=== PATIENT | female | born 1950 ===

== ENCOUNTER 2018-02-02 13:00 | Inpatient (IN) | payer OTHER ==
[2018-05-18] MEDS ORDERED: ceFAZolin 2 GM/DEXTROSE 100 ML IV ONE (06:00)
[2018-05-18] MEDS ORDERED: ROPIVACAINE 0.2% 80 MG, EPINEPHrine 0.2 MG, KETOROLAC TROMETHAMINE 30 MG in SYRINGE 0 ML IU ONE (06:00)
[2018-05-18] MEDS ORDERED: TRANEXAMIC ACID 3,000 MG in NS (SYRINGE) 50 ML IRR ONE (06:00)
--- NOTE | 2018-05-18 06:15 | PDHPUP ---
History & Physical Update H&P update statement: This history and physical update is based on an assessment of the patient which was completed after admission or registration (within 24 hours), but prior to the surgery/procedure. H&P update: H&P reviewed & patient examined, no change in patient's condition since H&P completed
[2018-05-18] MEDS ORDERED: DEXAMETHASONE 4 MG/ML VIAL IVP ONE (06:18)
[2018-05-18] MEDS ORDERED: FAMOTIDINE 20 MG TAB PO ONE (06:18)
[2018-05-18] MEDS ORDERED: ACETAMINOPHEN 325 MG TAB PO ONE (06:18)
[2018-05-18] MEDS ORDERED: LIDOCAINE 1% 2 ML INJ ID PRN (06:21)
[2018-05-18] MEDS ORDERED: LR 1,000 ML IV ONE (06:21)
[2018-05-18] MEDS ORDERED: TRANEXAMIC ACID 3,000 MG/50 ML BAG IRR ONE (06:41)
[2018-05-18] MEDS ORDERED: VANCOMYCIN 1 GM VIAL ONE (06:43)
--- NOTE | 2018-05-18 07:23 | PDANEPAE ---
ANE Past Medical History - Cardiovascular History Hx Hypertension: No Hx Arrhythmias: No Hx Chest Pain: No Hx Coronary Artery / Peripheral Vascular Disease: No Hx CHF / Valvular Disease: No Hx Palpitations: No - Pulmonary History Hx COPD: No Hx Asthma/Reactive Airway Disease: No Hx Recent Upper Respiratory Infection: No Hx Oxygen in Use at Home: No Hx Sleep Apnea: No Sleep Apnea Screening Result - Last Documented: Negative Pulmonary History Comment: CHILDHOOD ASTHMA - Neurologic History Hx Cerebrovascular Accident: No Hx Seizures: No Hx Dementia: No Neurologic History Comment: CONCUSSION IN PAST - Renal History Hx Renal Disorders: No - Liver History Hx Hepatic Disorders: No - Neurological & Psychiatric Hx Hx Neurological and Psychiatric Disorders: No - Cancer History Hx Cancer: No - Congenital Disorder History Hx Congenital Disorders: No - GI History Hx Gastrointestinal Disorders: No - Other Health History Other Health History: PT HAD POST OPERATIVE DROP IN CALCIUM AT CRTICAL LEVELS FOLLOWING. PARATHYROID SURGERY RESULTING IN 2 WKS HOSPITALIZATION - Chronic Pain History Chronic Pain: Yes (R SHOULDER) - Surgical History Prior Surgeries: EYE SURGERY CORRECTIVE. CATARACTS. TONSILS & ADENOIDS. PARA THYROID. R SHOULDER/COLLARBONE. HYSTERECTOMY. KNEE R SCOPES X2. BAKERS CYST. BUNIONECTOMY R. DENTAL SURG X9 ANE Review of Systems Review of Systems: - Exercise capacity METS (RN): 5 METS ANE Patient History - Allergies Allergies/Adverse Reactions: codeine Allergy (Verified 01/10/18 11:03) Vomiting guaifenesin Allergy (Verified 05/18/18 06:32) Other-Enter Comments hydrocodone [From Vicodin] Allergy (Verified 05/18/18 06:32) Vomiting morphine Allergy (Verified 05/18/18 06:32) Vomiting Sulfa (Sulfonamide Antibiotics) Allergy (Verified 05/18/18 06:32) Vomiting - Home Medications Home Medications: Aspirin [Aspirin 81mg (*)] 81 mg PO DAILY 01/10/18 [Last Taken 04/27/18] Calcium Carbonate [Oyster Shell Calcium 500 mg (*)] 1,000 mg PO DAILY 01/10/18 [ Last Taken 04/27/18] Cholecalciferol Vit D3 [Vitamin D3 (*)] 1,000 units PO DAILY 01/10/18 [Last Taken 04/27/18] Cyanocobalamin [Vitamin B12 (*)] 1,000 mcg PO DAILY 01/10/18 [Last Taken ] Estradiol [Estradiol 1 MG (*)] 2 mg PO DAILY 01/10/18 [Last Taken 02/16/18] Herbals/Supplements -Info Only 1 ea PO DAILY 01/10/18 [Last Taken 04/27/18] Montelukast Sodium [Singulair 10 mg (*)] 10 mg PO DAILY PRN 01/10/18 [Last Taken 05/17/18 22:00] Thyroid [[place] Thyroid 60 MG (*)] 30 mg PO DAILY10 01/10/18 [Last Taken 05:00] Melatonin [Melatonin 3 MG (*)] 3 mg PO HS 03/17/18 [Last Taken 05/04/18] diphenhydrAMINE [Benadryl 25 MG (*)] 25 mg PO DAILY PRN 03/17/18 [Last Taken 22:00] - NPO status NPO Since - Liquids (Date): 05/18/18 NPO Since - Liquids (Time): 05:00 NPO Since - Solids (Date): 05/17/18 NPO Since - Solids (Time): 22:30 - Smoking Hx Smoking Status: Never smoked ANE Labs/Vital Signs - Vital Signs Blood Pressure: 140/82 Heart Rate: 63 Respiratory Rate: 13 O2 Sat (%): 95 Height: 167.64 cm Weight: 54.431 kg ANE Physical Exam - Airway Mallampati Score: Class 2 - ASA Status ASA Status: II ANE Anesthesia Plan Anesthesia Plan: spinal Regional Anesthesia: adductor canal FNB
[2018-05-18] MEDS ORDERED: MIDAZOLAM 2 MG/2 ML VIAL ONE (07:31)
[2018-05-18] MEDS ORDERED: PROPOFOL/EMULSION 500 MG/50 ML BOTTLE IV ONE (07:32)
[2018-05-18] MEDS ORDERED: fentaNYL 100 MCG/2 ML INJ ONE (07:32)
[2018-05-18] MEDS ORDERED: ONDANSETRON 4 MG/2 ML VIAL ONE (07:34)
[2018-05-18] MEDS ORDERED: ROPIVACAINE HCL 100 MG/20 ML INJ ONE (07:34)
[2018-05-18] MEDS ORDERED: BUPIVACAINE/DEXTROSE 7.5MG/ML 2 ML SPINAL AMP SP ONE (07:34)
[2018-05-18] MEDS ORDERED: POLYETHYLENE GLYCOL 3350 17 GM PKT PO PRN (09:36)
[2018-05-18] MEDS ORDERED: MAGNESIUM HYDROXIDE 30 ML UDCUP PO PRN (09:36)
[2018-05-18] MEDS ORDERED: PROMETHAZINE HCL 25 MG/ML INJ IVP PRN ×2 (09:36→09:48)
[2018-05-18] MEDS ORDERED: LACTULOSE 20 GM/30 ML UDCUP PO PRN (09:36)
[2018-05-18] MEDS ORDERED: METOCLOPRAMIDE 10 MG/2 ML VIAL IVP PRN ×2 (09:36→09:48)
[2018-05-18] MEDS ORDERED: ONDANSETRON 4 MG/2 ML VIAL IVP PRN ×2 (09:36→09:48)
[2018-05-18] MEDS ORDERED: PROMETHAZINE HCL 25 MG SUPPR PR PRN (09:36)
[2018-05-18] MEDS ORDERED: BISACODYL 10 MG SUPP PR PRN (09:36)
[2018-05-18] MEDS ORDERED: TEMAZEPAM 15 MG CAP PO PRN (09:36)
[2018-05-18] MEDS ORDERED: DIPHENOXYLATE/ATROPINE LOMOTIL 1 TAB PO PRN (09:36)
[2018-05-18] MEDS ORDERED: diphenhydrAMINE 25 MG CAP PO PRN (09:36)
--- NOTE | 2018-05-18 09:36 | POSTOPPROG ---
Post Op Note Date of Operation: 05/18/18 Surgeon: Ed Jackson Appliance Adjuster: María Holloway PA-C Anesthesiologist: Dr. Esteban Russell Anesthesia: Spinal (adductor canal block), Other (Specify) Pre-op Diagnosis: Right knee OA Post-op Diagnosis: same Indication: right knee pain Procedure: RTKA Findings: severe OA of right knee Inf/Abcess present in the surg proc area at time of surgery?: No EBL: 50-100
[2018-05-18] MEDS ORDERED: LR 500 ML IV PRN (09:48)
[2018-05-18] MEDS ORDERED: fentaNYL 100 MCG/2 ML INJ IVP PRN (09:48)
[2018-05-18] MEDS ORDERED: NALOXONE HCL 0.4 MG/ML INJ IVP PRN (09:48)
[2018-05-18] MEDS ORDERED: DEXAMETHASONE 4 MG/ML VIAL IVP PRN (09:48)
[2018-05-18] MEDS ORDERED: ACETAMINOPHEN 500 MG TAB PO PRN (09:48)
--- NOTE | 2018-05-18 09:50 | POSTANESTH ---
Post Anesthetic Evaluation Cardiovascular Status: Normal, Stable Respiratory Status: Normal, Stable Level of Consciousness/Mental Status: Can Participate in Eval Pain Control: Adequate, Prn Tx Ordered Nausea/Vomiting Control: Adequate, Prn Tx Ordered Complications Possibly Related to Anesthesia: None Noted
[2018-05-18] MEDS ORDERED: LR 1,000 ML IV SCH (10:00)
[2018-05-18] MEDS ORDERED: MEPERIDINE 25 MG/0.5 ML AMP ONE (10:33)
[2018-05-18] MEDS: TEARS/DEXTRAN 70/HYPROMELLOSE 15 ML OPHT.BTL EACHEYE PRN ×2 (10:37→18:36)
[2018-05-18] MEDS: ONDANSETRON DISINTEGRATING 4 MG TAB PO PRN ×2 (11:48→18:36)
[2018-05-18] MEDS: THYROID 60 MG TAB PO SCH (11:56)
[2018-05-18] MEDS: HYDROmorphONE/DILAUDID 2 MG TAB PO PRN ×2 (13:01→17:24)
--- NOTE | 2018-05-18 13:52 | PDMN ---
Medical Necessity Medical necessity: Pt meets IP criteria per PA; est los >2 mn s/p R TKA (cpt 16324); recommending IP due to concerns for pain control with hx of narcotic intolerance & out of state pt; per order 05/18/18
[2018-05-18] MEDS: ACETAMINOPHEN 325 MG TAB PO SCH ×2 (15:05→21:59)
[2018-05-18] MEDS: ceFAZolin 2 GM/DEXTROSE 100 ML IV SCH ×2 (15:06→23:35)
[2018-05-18] MEDS ORDERED: MONTELUKAST SODIUM 10 MG TAB PO PRN (18:00)
[2018-05-18] MEDS: ASPIRIN 81 MG CHEWABLE TAB PO SCH (20:42)
[2018-05-18] MEDS: SENNOSIDES/DOCUSATE SODIUM TAB PO SCH (20:42)
[2018-05-18] MEDS: FAMOTIDINE 20 MG TAB PO SCH (20:42)
[2018-05-18] MEDS: CYCLOBENZAPRINE 10 MG TAB PO PRN (20:42)
[2018-05-19] MEDS: HYDROmorphONE/DILAUDID 2 MG TAB PO PRN ×5 (02:13→19:12)
[2018-05-19] MEDS: ACETAMINOPHEN 325 MG TAB PO SCH ×4 (03:37→21:48)
[2018-05-19] MEDS: ONDANSETRON DISINTEGRATING 4 MG TAB PO PRN (05:55)
[2018-05-19] MEDS: FAMOTIDINE 20 MG TAB PO SCH ×2 (08:49→20:57)
[2018-05-19] MEDS: SENNOSIDES/DOCUSATE SODIUM TAB PO SCH ×2 (08:49→20:57)
[2018-05-19] MEDS: ASPIRIN 81 MG CHEWABLE TAB PO SCH ×2 (08:51→20:57)
--- NOTE | 2018-05-19 09:11 | ASMTLACE ---
LACE Length of stay for Answers: 2 days current admission Acuity / Level of Answers: Yes Care: Did the patient have an inpatient admission? Comorbidities - select Answers: Opioid dependence all that apply / Chronic pain # of Emergency department Answers: 0 visits in the last 6 months Score: 9 Date Signed: 05/19/2018 09:11 AM Electronically Signed By:SANDRA Matias
--- NOTE | 2018-05-19 09:14 | GOP ---
[f rep st] OPERATIVE REPORT DATE OF OPERATION: 05/18/2018 SURGEON: Alberto Jackson MD QUALITY IMPROVEMENT ANALYST: Lakesha Holloway PA-C ANESTHESIA: Spinal. PREOPERATIVE DIAGNOSIS: Right knee osteoarthritis. POSTOPERATIVE DIAGNOSIS: Right knee osteoarthritis. PROCEDURE PERFORMED: Right total knee arthroplasty. FINDINGS: ESTIMATED BLOOD LOSS: 30 cc INDICATIONS: The patient is a 67-year-old female with severe and progressive pain and deformity of t he right knee unresponsive to conservative care. Risks and benefits of the surgical intervention wer e explained in detail. DESCRIPTION OF PROCEDURE: The patient was brought to the operative room and placed on the table in t he supine position. Spinal anesthesia was induced without difficulty. A pneumatic tourniquet was ap plied about the right proximal thigh, and the leg was prepped and draped in a sterile fashion. The l eg mcmahon was applied. After exsanguination by elevation the tourniquet was inflated to 250 mm of me rcury. Incision was made anterior medial from the tibial tuberosity to a point 2 cm proximal to the superior pole of the patella. Medial parapatellar arthrotomy was carried out from the superior pole of the p atella and posteriorly in line with the fibers of the Type II VMO . The medial collateral ligament was elevated and the infrapatellar fat pad was resected. The patella was everted and the articular surface was excised. A 32 mm patellar button was placed. T distal femoral guide hole was drilled and the 6-degree alignment estefany was placed. A 9 mm distal fe moral cut was made without difficulty. Attention was turned to the tibia and a standard 9 mm cut based on the lateral tibial condyle was per formed. The tibial articular surface was excised without difficulty. Attention was turned back to the femur and a size 3 Journey II femoral cutting block was positioned. Anterior, posterior, and chamfer cuts were made, followed by the intercondylar box cut. The knee was extended and the remnants of the medial and lateral meniscus were excised. The posterio r capsule was injected with ropivacaine, epinephrine and Toradol. A size 4 Journey II tibial tray wa s positioned. Trial reduction was then carried out. There was excellent range of motion, alignment, and stability using the 9 mm polyethylene. All trials were then removed. The joint was thoroughly irrigated and carefully dried. Two packages of cement and 2 grams of vancomycin were mixed in the vacuum mixer and placed on the fixation surface s of all surfaces of the components. The components were implanted and all excess cement was thoroug hly removed. The permanent 9 mm polyethylene was placed without difficulty. The tourniquet was deflated and all bleeders were coagulated. The wound was thoroughly irrigated and closed using interrupted sutures of 2-0 Vicryl for the joint capsule. The subcu was closed with 3-0 Vicryl and the skin with 4-0 Monocryl. Dermabond and Steri-Strips were applied followed by a compre ssive dressing. The patient was then moved from the operating room to the recovery room in good cond ition, having tolerated the procedure well. /[id number]/MODL
--- NOTE | 2018-05-19 09:21 | SOAPPROG ---
SOAP Progress Note Assessment/Plan: Assessment: Patient is doing well POD 1 s/p R TKA Pain management: pain is well controlled on oral pain meds. VTE ppx: recommend aspirin 81 mg BID for 4 weeks, cont XIN and SCDs Anemia: level is expected initially postop. Asymptomatic. Continue to monitor Popping sensation: normal in artificial total knee replacements. night RN called extrusion die corrector provider, received order for xray. second set of postop xrays are normal. patient reports aggressive PT session yesterday D/c planning: Patient has done better than anticipated and would like to be discharged to home today. Patient must be released from PT before discharge to home. Plan: 05/19/18 09:13 Subjective: Naomi is doing well today, had questions regarding popping sensation yesterday during PT, pain after PT, but states she is tolerating dilaudid well with zofran , thania N/V, denies chest pain and SOB Objective: Vital Signs Temp Pulse Resp BP Pulse Ox 36.7 C 58 L 17 116/71 98 05/19/18 07:24 05/19/18 07:24 05/19/18 07:24 05/19/18 07:24 05/19/18 07:24 Laboratory Results 05/19/18 04:43 05/18/18 05/19/18 05/20/18 05:59 05:59 05:59 Intake Total 3554 Output Total 3350 Balance 204 RLE: incision dressing is clean and dry, NVI, +pf/df ICD10 Worksheet Patient Problems: Problems Problem Status Onset Primary localized osteoarthritis of right knee Acute
[2018-05-19] MEDS: THYROID 60 MG TAB PO SCH (12:38)
[2018-05-19] MEDS: CYCLOBENZAPRINE 10 MG TAB PO PRN ×2 (12:43→20:57)
[2018-05-20] MEDS: HYDROmorphONE/DILAUDID 2 MG TAB PO PRN ×2 (02:55→12:22)
[2018-05-20] MEDS: ACETAMINOPHEN 325 MG TAB PO SCH ×2 (04:23→09:38)
[2018-05-20] MEDS: ONDANSETRON DISINTEGRATING 4 MG TAB PO PRN (06:52)
[2018-05-20] MEDS ORDERED: NS 500 ML IV ONE (08:00)
[2018-05-20 08:25] VITALS: BP 103/52
[2018-05-20] MEDS: ASPIRIN 81 MG CHEWABLE TAB PO SCH (09:35)
[2018-05-20] MEDS: SENNOSIDES/DOCUSATE SODIUM TAB PO SCH (09:37)
[2018-05-20] MEDS: FAMOTIDINE 20 MG TAB PO SCH (09:37)
[2018-05-20] MEDS: THYROID 60 MG TAB PO SCH (10:38)
--- NOTE | 2018-05-20 13:50 | SOAPPROG ---
SOAP Progress Note Assessment/Plan: Assessment: Patient is doing well POD 2 s/p R TKA Pain management: pain is well controlled on oral pain meds. VTE ppx: recommend aspirin 81 mg BID for 4 weeks, cont XIN and SCDs Anemia: level is expected initially postop. Asymptomatic. Continue to monitor D/c planning: Patient has done better than anticipated and would like to be discharged to home today. Patient must be released from PT before discharge to home. Plan: 05/19/18 09:13 05/20/18 13:49 Subjective: pain is controlled on oral pain meds, denies SOB, chest pain Objective: Vital Signs Temp Pulse Resp BP Pulse Ox 36.2 C 55 L 14 103/52 L 91 L 05/20/18 07:14 05/20/18 08:24 05/20/18 08:24 05/20/18 08:24 05/20/18 08:24 Laboratory Results 05/20/18 04:31 05/19/18 05/20/18 05/21/18 05:59 05:59 05:59 Intake Total 3554 1250 Output Total 3350 Balance 204 1250 incision dressing is clean and dry, NVI ICD10 Worksheet Patient Problems: Problems Problem Status Onset Primary localized osteoarthritis of right knee Acute
--- NOTE | 2018-05-20 14:41 | ASMTDCNOTE ---
Case Management Discharge Discharge Order Complete? Answers: Yes Patient to Obtain Answers: via Family Medications Transportation Arranged Answers: Family/Friends Discharge Comments Notes: Pt is s/p a R TKA. PT has cleared her for outpt therapy. Pt is discharging home with her and no CM needs. Date Signed: 05/20/2018 02:40 PM Electronically Signed By:SANDRA Malone
--- NOTE | 2018-05-20 14:50 | ASDISCHSUM ---
Discharge Information Plan Status:Home with No Needs Medically Cleared to Leave:05/20/2018 Discharge Date:05/20/2018 CM D/C Disposition:Home, Routine, Self-Care ADT D/C Disposition:Home, Routine, Self-Care Projected Discharge Date:05/20/2018 Transportation at D/C:Family Discharge Delay Reason: Follow-Up Date:05/20/2018 Discharge Slot: Final Diagnosis: Placement Information Patient Contact Information Contact Name:YAN Relationship: Address:[address] Work Phone: Ann Marie:CAROL ANN Salguero Phone: State/Zip Code:[place] [address] Email: Financial Information Financial Class:Medicare Primary Plan Desc:MEDICARE INPATIENT Primary Plan Number:[id number] Secondary Plan Desc:DOTTIE ATKINS Secondary Plan Number:[id number] Assessment Information LACE LACE Length of stay for Answers: 2 days current admission Acuity / Level of Answers: Yes Care: Did the patient have an inpatient admission? Comorbidities - select Answers: Opioid dependence all that apply / Chronic pain # of Emergency department Answers: 0 visits in the last 6 months Score: 9 Date Signed: 05/19/2018 09:11 AM Electronically Signed By:SANDRA Matias Case Management Discharge Plan Note Case Management Discharge Discharge Order Complete? Answers: Yes Patient to Obtain Answers: via Family Medications Transportation Arranged Answers: Family/Friends Discharge Comments Notes: Pt is s/p a R TKA. PT has cleared her for outpt therapy. Pt is discharging home with her and no CM needs. Date Signed: 05/20/2018 02:40 PM Electronically Signed By:Damaris Ramirez, [employer] TE[employer]ER LIBRARIAN Intervention Information
== END 2018-05-20 14:45 | disposition home or self-care (01) | DRG 470 ==
LOC: F3N 05-18 06:01 → OBSVTOIN 05-18 09:39 → F3N 05-18 11:21
PROVIDERS: ADMIT Orthopaedic Surgery; ATTEND Orthopaedic Surgery
PROC: 0SRC0J9 Replacement of Right Knee Joint with Synthetic Substitute, Cemented, Open Approach (ICD-10-PCS; principal; 2018-05-18 08:00)
DX: M17.11 Unilateral primary osteoarthritis, right knee (principal)
CPT/HCPCS: 97110-GP; 97116-GP; 97161-GP; C1713; J0171; J0690; J1100; J1885; J2175; J2250; J2405; J2550; J2704; J2795; J3010; J3370